=== PATIENT | male | born 1985 | race Caucasian/White ===

== ENCOUNTER 2019-02-08 06:27 | Emergency (ER) | payer SELFPAY ==
[~2019-02-08] VITALS: Ht 185.4 cm; Wt 88.9 kg
[2019-02-08 06:36] VITALS: BP 144/85
[2019-02-08] MEDS ORDERED: CYCL5TAB PO (07:14)
--- NOTE | 2019-02-08 07:14 | PHYS DOC ---
Past Medical History Alcohol Use: Occasionally Drug Use: None Adult General Chief Complaint Chief Complaint: BACK PAIN OR INJURY HPI HPI Patient is a 33 year old female who presents the ER for evaluation of back pain. Patient reports acute onset of low back pain while lifting at work. Pain has progressed. Pain is the lower lumbar area, constant, 5-6 out of 10, worse with movement particularly flexion. Denies any distal numbness/tingling, no loss of bowel or bladder control, no saddle anesthesia. Denies any previous back injuries. Review of Systems Review of Systems Constitutional: Denies fever or chills [] Respiratory: Denies cough or shortness of breath [] Cardiovascular: No chest pain, no LE edema GI: Denies abdominal pain, nausea, vomiting, bloody stools or diarrhea [] : Denies dysuria or hematuria [] Musculoskeletal: +back pain Integument: Denies rash or skin lesions [] Endocrine: Denies polyuria or polydipsia [] All other systems were reviewed and found to be within normal limits, except as documented in this note. Physical Exam Physical Exam Constitutional: Well developed, well nourished, HENT: Normocephalic, atraumatic, Eyes: PERRLA, EOMI, Neck: Normal range of motion, no stridor. [] Cardiovascular:Heart rate regular rhythm, no murmur [] Lungs & Thorax: Bilateral breath sounds clear to auscultation [] Skin: Warm, dry, no erythema, no rash. [] Back: No midline spinal tenderness, mildly limited range of motion particularly rotation and flexion. Extremities: ROM intact, no edema. [] Neurologic: Alert and oriented X 3, no focal deficits noted, ambulates with a steady gait. [] Psychologic: Affect normal, judgement normal, mood normal. [] Current Patient Data Vital Signs Vital Signs Date Time Temp Pulse Resp B/P (MAP) Pulse Ox O2 Delivery O2 Flow Rate FiO2 02/08/19 06:36 98.3 72 144/85 (104) 100 98.3 EKG EKG [] Radiology/Procedures Radiology/Procedures []Patient with lower lumbar back pain/strain with no concerning symptoms on exam or history for a central cord process. Likely peripheral neuropathy/MSK injury. Discussed supportive care. X-rays with no acute findings. Prescribed short course of flexeril. Patient to follow-up through work injury referral. ER return precautions given. Patient verbalized understanding. All questions answered. Impressions: Lumbar XR IMPRESSION: No acute lumbar fracture or malalignment. Electronically signed by: Wayne Dangelo MD (02/08/2019 7:54 AM) [facility] Course & Med Decision Making Course & Med Decision Making Pertinent Labs and Imaging studies reviewed. (See chart for details) [] Dragon Disclaimer Dragon Disclaimer This electronic medical record was generated, in whole or in part, using a voice recognition dictation system. Departure Departure Impression: Primary Impression: Back pain Disposition: HOME, SELF-CARE Condition: STABLE Referrals: NO PCP (PCP) Patient Instructions: Back Pain, Adult Additional Instructions: Thank you for coming to [facility]. Please read the attached handouts. Please follow-up with your primary care physician. Return to the ER if your symptoms worsen or you have any other concerns. Please take ibuprofen 800 mg 3 times a day with food. Alternate this with acetaminophen 1000 mg every 6 hours. Do not exceed 4000 mg of acetaminophen in a 24-hour period. Please take the prescribed medication for uncontrolled pain. Wear a back support. Scripts Cyclobenzaprine Hcl (CYCLOBENZAPRINE HCL) 5 Mg Tablet 10 MG PO PRN TID PRN for PAIN, #15 TAB Prov: ZAIRE BEAULIEU DO 02/08/19 ZAIRE BEAULIEU DO Feb 08, 2019 07:14
--- NOTE | 2019-02-08 07:56 | RAD ---
LUMBAR SPINE RADIOGRAPHS (AP and lateral views with a coned-down lateral view of the lumbosacral junction): DATE: 02/08/2019 7:02 AM INDICATION: low back pain more on the right from injury at work yesterday moving a pallet COMPARISON: None. FINDINGS: Five non-rib bearing lumbar-type vertebral bodies are present. The normal lumbar lordosis is preserved. No listhesis. Vertebral body heights are normal. There is no evidence of acute fracture. The disc spaces are maintained. The visualized soft tissues are unremarkable. IMPRESSION: No acute lumbar fracture or malalignment. Electronically signed by: Wayne Dangelo MD (02/08/2019 7:54 AM) [facility]
== END 2019-02-08 08:10 | disposition home or self-care (01) ==
LOC: ER 06:27
DX: S39.012A Strain of muscle, fascia and tendon of lower back, initial encounter (principal); X50.9XXA Other and unspecified overexertion or strenuous movements or postures, initial encounter; Y93.89 Activity, other specified; Y92.89 Other specified places as the place of occurrence of the external cause; Y99.0 Civilian activity done for income or pay
CPT/HCPCS: 72100; 99283